=== PATIENT | male | born 1990 | race Caucasian/White ===

== ENCOUNTER 2019-10-11 22:53 | Emergency (ER) | payer OTHER ==
--- NOTE | 2019-10-11 23:13 | EDM.PDOC ---
ED HPI GENERAL MEDICAL PROBLEM - General Chief Complaint: Lower Extremity Injury/Pain Stated Complaint: POSSIBLE BLOOD CLOT LEFT LEG Time Seen by Provider: 10/11/19 23:05 Source of Information: Reports: Patient History Limitations: Reports: No Limitations - History of Present Illness INITIAL COMMENTS - FREE TEXT/NARRATIVE: This is a 29-year-old male. He noted this afternoon and this evening that on his left medial lower thigh he had a large swelling. It was somewhat firm and tender and when his saw it she thought he might have a blood clot and I am told him to come to the ER for evaluation. He does have a history of varicose veins in that left leg and he has a group of them right in that area that swelled up. He states it swelled up like a golf ball but then he has been massage again and is going down now. He denies any swelling of the leg itself or erythema of the leg. He denies any pain in the leg or when walking. He has had no shortness of breath no cough and no other acute symptoms. Left Upper Leg Pain Score (Numeric/FACES): 6 - Related Data Allergies Allergy/AdvReac Type Severity Reaction Status Date / Time No Known Allergies Allergy Verified 10/11/19 23:01 Home Meds: Home Meds . [No Known Home Meds] 10/11/19 [History] Past Medical History Respiratory History: Reports: Asthma - Past Surgical History Musculoskeletal Surgical History: Reports: Arthroscopic Knee Social & Family History - Tobacco Use Smoking Status *Q: Current Every Day Smoker Years of Tobacco use: 10 Packs/Tins Daily: 1 - Alcohol Use Days Per Week of Alcohol Use: 7 Number of Drinks Per Day: 2 Total Drinks Per Week: 14 - Recreational Drug Use Recreational Drug Use: Yes Drug Use in Last 12 Months: No Recreational Drug Type: Reports: Heroin Recreational Drug Use Frequency: Not Used In Over 6 Months Review of Systems - Review of Systems Review Of Systems: See Below Constitutional: Denies: Chills, Fever Eyes: Reports: No Symptoms Ears: Reports: No Symptoms Nose: Reports: No Symptoms Mouth/Throat: Reports: No Symptoms Respiratory: Reports: No Symptoms Cardiovascular: Reports: No Symptoms GI/Abdominal: Reports: No Symptoms Genitourinary: Reports: No Symptoms Musculoskeletal: Reports: Other (As per HPI) Skin: Reports: Other (As per HPI) Neurological: Reports: No Symptoms Psychiatric: Reports: No Symptoms ED EXAM, GENERAL - Physical Exam Exam: See Below Exam Limited By: No Limitations General Appearance: Alert, WD/WN, No Apparent Distress Ears: Normal External Exam Nose: Normal Inspection Throat/Mouth: Normal Lips, Normal Voice, No Airway Compromise Head: Normocephalic Neck: Supple Respiratory/Chest: No Respiratory Distress Back Exam: Full Range of Motion Extremities: Other (On his left lower extremity distal thigh medially he has a group of varicose veins that appear to be having some mild phlebitis. They are slightly tender on palpation but there is no redness no warmth noted. His left lower extremity calf ankle thigh none of it is swollen or red or tender.) Neurological: Alert, Oriented Psychiatric: Normal Affect, Normal Mood Skin Exam: Warm, Dry Course - Vital Signs Last Recorded V/S: Last Vital Signs Temp 97.6 F 10/11/19 23:04 Pulse 76 10/11/19 23:04 Resp 19 10/11/19 23:04 BP 137/99 H 10/11/19 23:04 Pulse Ox 96 10/11/19 23:04 Departure - Departure Time of Disposition: 23:10 Disposition: Home, Self-Care 01 Condition: Good Clinical Impression: Phlebitis of leg, left, superficial - Discharge Information *PRESCRIPTION DRUG MONITORING PROGRAM REVIEWED*: Not Applicable *COPY OF PRESCRIPTION DRUG MONITORING REPORT IN PATIENT MIKE: Not Applicable Instructions: Phlebitis, [id number] Referrals: PCP,None [Primary Care Provider] - Forms: ED Department Discharge Additional Instructions: Consider getting some compression stockings that go up the thigh, use a warm heating pad or moist heat to that area to help with the blood flow and to break up the superficial thrombophlebitis, also consider taking some ibuprofen or Aleve to help with the inflammation and the soreness, follow-up with your family doctor as needed or return to the ER as needed Sepsis Event Note - Evaluation Sepsis Screening Result: No Definite Risk - Focused Exam Vital Signs: Vital Signs Temp Pulse Resp BP Pulse Ox 10/11/19 23:04 97.6 F 76 19 137/99 H 96 Date Exam was Performed: 10/11/19 Time Exam was Performed: 23:21
== END 2019-10-11 23:18 | disposition home or self-care (01) ==
LOC: JD.ED 22:53
DX: I80.02 Phlebitis and thrombophlebitis of superficial vessels of left lower extremity (principal); F17.210 Nicotine dependence, cigarettes, uncomplicated
CPT/HCPCS: 99283